=== PATIENT | male | born 1970 | race African-American/Black ===

== ENCOUNTER 2016-11-10 14:51 | Emergency (ER) | payer OTHER ==
--- NOTE | ~2016-11-10 | CR58 ---
[facility] A Service of [facility] & [facility] RADIOLOGY TEXT RESULTS PATIENT: FROILAN RON LOCATION: CFTX : 72 UNIT #: [id number] AGE: [address]: Drew Lantigua SEX: M ORDER DR: [id number] [facility] [address] [place], [place] [address] [id number] E MR#: [id number] Acc #: [id number] NAME: FROILAN RON : 1970 SEX: M STUDY DATE/TIME: 11/10/2016 13:45 UNIT: CFTX ROOM: STUDY DESCRIPTION: CR Cervical Spine 2 or 3 Views Attending Physician: Drew Lantigua Ordering Physician: Ed Bird Rodarte M.D. Primary Care Physician: [facility] MEDICAL IMAGING REPORT This report is preliminary unless electronic signature is present EXAM Cervical spine series, 11/10/2016 1345 hours HISTORY 46-year-old man complaining of 1-week history of cough and neck pain. COMPARISON 09/14/2010 FINDINGS AP, lateral, open-mouth and lateral swimmer's views were performed. C1 through T1 are visualized. The alignment is normal. Vertebral body and disc heights are normal. There is no fracture or prevertebral soft tissue swelling. IMPRESSION Negative cervical spine series. Dictated by... Kateryna Estevez M.D. THIS IS AN ELECTRONICALLY VERIFIED REPORT Kateryna Estevez M.D. at 11/11/2016 9:26 AM CY/ivon TD: 11/10/2016 22:03 JOB #: [id number] MEDICAL IMAGING REPORT COPY
--- NOTE | ~2016-11-10 | CR63 ---
[facility] A Service of [facility] & [facility] RADIOLOGY TEXT RESULTS PATIENT: FROILAN RON LOCATION: CFTX : 72 UNIT #: [id number] AGE: [address]: Drew Lantigua SEX: M ORDER DR: [id number] [facility] [address]. [place], [place] [address] [id number] E MR#: [id number] Acc #: [id number] NAME: FROILAN RON : 1970 SEX: M STUDY DATE/TIME: UNIT: CFTX ROOM: STUDY DESCRIPTION: CR Chest 2 View Attending Physician: Drew Lantigua Ordering Physician: Arnaud Rodarte M.D. Primary Care Physician: Sujata [facility] MEDICAL IMAGING REPORT This report is preliminary unless electronic signature is present EXAM Chest 2 views, 11/10/2016 1345 hours. HISTORY 46-year-old man with 1-week history of cough with neck pain. Hypertension. COMPARISON 09/24/2010 FINDINGS Upright PA and 2 lateral views demonstrate normal cardiac, mediastinal and hilar contours. The lungs are well expanded and clear. There is no pleural effusion or bony lesion. IMPRESSION No acute cardiopulmonary findings. Dictated by... Kateryna Estevez M.D. THIS IS AN ELECTRONICALLY VERIFIED REPORT Kateryna Estevez M.D. at 11/11/2016 9:26 AM Awais TD: 11/10/2016 21:55 JOB #: [id number] MEDICAL IMAGING REPORT COPY
[2016-11-10 14:04] LABS: INFLUENZA A POS (NEG); INFLUENZA B NEG (NEG)
[~2016-11-10 14:51] MED LIST: BACTRIM DS TABL1 TA1 PO; BENADRYL25 MG PO; FLEXERIL10 MG PO; KEFLEX250 M1 PO; KEFLEX500 MG PO; LORTAB 5/500 TA1 TA1 PO; MEDROL4 MG/DOSE- PO; MOTRIN600 M1 PO; NAPROXEN SODIU500 MG PO; ORUDIS75 M1 PO; PREDNISONE PO; ROBAXIN500 MG PO; SKELAXIN PO; TRAMADOL HCL50 M1 PO
== END 2016-11-10 15:04 | disposition home or self-care (01) ==
LOC: CFTX 14:51
PROVIDERS: Nurse Practitioner
DX: J10.1 Influenza due to other identified influenza virus with other respiratory manifestations (principal); J45.909 Unspecified asthma, uncomplicated; S16.1XXA Strain of muscle, fascia and tendon at neck level, initial encounter; M54.12 Radiculopathy, cervical region; I10 Essential (primary) hypertension; F17.210 Nicotine dependence, cigarettes, uncomplicated; Z98.890 Other specified postprocedural states; X58.XXXA Exposure to other specified factors, initial encounter; Y92.9 Unspecified place or not applicable
CPT/HCPCS: 71020; 72040; 87651; 87804; 94640; 99283